=== PATIENT | female | born 1950 | race Caucasian/White ===

== ENCOUNTER 2017-05-05 09:49 | Inpatient (IN) ==
[~2017-05-05 09:49] MED LIST: Bacitracin 50,000 UNIT, Polymyxin B Sulfate 500,000 UNIT, Sodium Chloride IRRigation 1,... IR ONE
[2017-05-05] MEDS ORDERED: Ondansetron 4 MG/2 ML VIAL ONE (09:57)
[2017-05-05] MEDS ORDERED: *HR* Midazolam HCl 5 MG/5 ML VIAL IVP ONE (09:57)
[2017-05-05] MEDS ORDERED: Lidocaine -MPF 2% 2 ML VIAL ONE (09:57)
[2017-05-05] MEDS ORDERED: *HR* FentaNYL (PF) 100 MCG/2 ML VIAL ONE ×2 (09:57→14:48)
[2017-05-05] MEDS ORDERED: *HR* Propofol 200 MG/20 ML VIAL IVP ONE (09:57)
[2017-05-05] MEDS ORDERED: Lidocaine -MPF 4% 5 ML AMPUL ONE (09:57)
[2017-05-05] MEDS ORDERED: *HR* Remifentanil 2 MG VIAL IVP ONE (09:57)
[2017-05-05] MEDS ORDERED: Dexamethasone 4 MG/ML VIAL ONE (09:57)
[2017-05-05] MEDS ORDERED: CeFAZolin Syr 2,000MG/20 ML 2,000 MG/20 ML SYRINGE IVPB ONE (10:02)
[2017-05-05] MEDS ORDERED: Plasma-Lyte A (PH 7.4) 1,000 ML IVC SCH (10:15)
[2017-05-05] MEDS ORDERED: Acetaminophen IV 1,000 MG/100 ML INFUS..BTL IVPB ONE (10:23)
[2017-05-05] MEDS ORDERED: Famotidine 20 MG/2 ML VIAL IVP ONE (10:23)
[2017-05-05] MEDS ORDERED: Gabapentin 300 MG CAPSULE PO ONE (10:23)
--- NOTE | 2017-05-05 10:37 | Anesthesia Evaluation PreOp ---
Date of Encounter: 05/05/17 Time of Encounter: 10:35 - Past History Planned Operation: PLIF L5-S1 Cardiac History: HTN, Hyperlipidemia Pulmonary History: Denies Any Significant HX EMPLOYEE BENEFITS COORDINATOR History: Denies Any Significant HX Other Medical History: GERD, Other (Arthritis) Anesthesia History: Past Anesthesia (Bladder Surgery), Problems (Collapsed Lung) : No Alcohol Use: none Drug use: none Medications and Allergies BuPROPion XL (24 HR) [Wellbutrin XL] 150 mg PO DAILY 05/05/17 [History] Celecoxib [Celebrex] 200 mg PO DAILY 05/05/17 [History] Diltiazem CD (24hr) [Cardizem CD] 240 mg PO DAILY 05/05/17 [History] Multivit-Min/Iron/Folic/Lutein [Centrum Silver Women Tablet] 1 tab PO DAILY 02/10 [History] Omeprazole [PriLOSEC] 20 mg PO DAILY 05/05/17 [History] Paroxetine HCl [Paxil] 20 mg PO DAILY 05/05/17 [History] Simvastatin [Zocor] 20 mg PO HS 05/05/17 [History] Triamterene/Hydrochlorothiazid [Dyazide 37.5-25 Capsule] 1 tab PO DAILY [History] 3 Allergy/AdvReac Type Severity Reaction Status Date / Time benazepril [From Lotensin] Allergy Cough Verified 05/05/17 10:30 hydrochlorothiazide Allergy Cough Verified 05/05/17 10:30 [From Diovan HCT] valsartan [From Diovan HCT] Allergy Cough Verified 05/05/17 10:30 - Meds/Allergy Pre-op Review Medications Reviewed: Yes Allergies Reviewed: Yes Beta Blockers on Current Med List: No Anesthesia Results - Labs Laboratory Tests 04/25/17 04/25/17 13:57 13:57 Hgb 12.6 Hct 41.1 Plt Count 491 H Sodium 140 Potassium 3.8 BUN 22 Creatinine 0.99 - Imaging EKG: report reviewed (SR) Anesthesia Exam O2 Sat Height 1.42 m Height 1.42 m Weight 52.163 kg Weight 52.163 kg O2 Sat by Pulse Oximetry 95 Vital Signs Temp Pulse Resp BP Pulse Ox 98.9 F 90 18 136/77 95 05/05/17 10:37 05/05/17 10:37 05/05/17 10:37 05/05/17 10:37 05/05/17 10:37 Height: 4'8 Weight: 115 lbs NPO (# of Hours): MN Pain Scale: 0 - HEENT Pupil (Motor): Pupils equal, EOMI Mallampati: III Teeth: Normal Oral Opening: Less than or equal to 3 - EMPLOYEE BENEFITS COORDINATOR LOC: Oriented EMPLOYEE BENEFITS COORDINATOR Motor: Normal RUE, Normal LUE, Normal RLE, Normal LLE, Normal Face EMPLOYEE BENEFITS COORDINATOR Sensory: Normal: RUE, LUE, RLE, LLE, Face - Cardiac Rhythm: Regular Murmur: None JVD: No Carotid Bruit: No - Pulmonary Breath Sounds: bilateral Clear Respiratory Effort: Symmetrical Anesthesia Assess/Plan ASA Score: 2 Modified [place] Scale for Level of Consciousness: Cooperative, oriented, and tranquil Anesthetic Plan: General Monitoring Plan: Standard Monitors Recovery Plan: PACU (Discussed GA, agrees to proceed)
--- NOTE | 2017-05-05 11:04 | History & Physical Report ---
Date of Encounter: 05/05/17 Time of Encounter: 11:03 24 Hour HP Update - Instructions Instructions: If the History and Physical is less than 30 days old and was completed prior to A.M. admission and or procedure and has NOT been updated on calendar day of procedure please complete this update prior to performing procedure. - Update Patient reports changes in Medical Condition: No Changes in examination, assessment, or condition: No Changes in Medication: No Preop tests/diagnostics Reviewed: Yes Pre-Op MRSA Screen: Negative Surgery Remains Indicated: Yes Consent for Planned Operative Procedure(s) Verified: Yes - Pre-Operative Checklist Preoperative Checklist Indicated: No Prophylactic Antibiotic Ordered: Yes Home Medications Include Beta Jeanie: No Beta Jeanie Taken Today (Day of Surgery): No Beta Jeanie Taken Yesterday (Day Prior to Surgery): No Is VTE Prophylaxis Indicated?: Yes
[2017-05-05] MEDS ORDERED: *HR* PHENYLEPHRINE 1,000 MCG/10 ML SYRINGE IVP ONE ×2 (12:47→14:27)
[2017-05-05] MEDS ORDERED: EPHEDrine 50 MG/ML VIAL ONE (13:27)
[2017-05-05] MEDS ORDERED: *HR* OxyCODONE Immed Rel 5 MG TABLET PO PRN (13:42)
[2017-05-05] MEDS ORDERED: *HR* FentaNYL (PF) 100 MCG/2 ML VIAL IVP PRN (13:42)
[2017-05-05] MEDS ORDERED: Ondansetron 4 MG/2 ML VIAL IVP ONE (13:42)
[2017-05-05] MEDS ORDERED: *HR* Labetalol 20 MG/4 ML SYRINGE IVP PRN (13:42)
[2017-05-05] MEDS ORDERED: *HR* Promethazine 25 MG/ML VIAL IVP PRN (13:42)
[2017-05-05] MEDS ORDERED: MORPHINE SUL Oral CONC 10 MG/0.5 ML ORAL.SYG SL PRN (13:42)
--- NOTE | 2017-05-05 14:54 | Orthopedic Operative Note ---
Date of procedure: 05/05/17 Pre-op diagnosis: Perineural cyst, lumbar stenosis, lumbar radiculopathy Post-op diagnosis: same Operation/Findings: Posterior lumbar interbody fusion L5-S1: The patient successfully underwent general endotracheal anesthesia. The patient was given antibiotics prior to the start of the procedure. Compression boots and stockings were used for deep vein thrombosis prophylaxis. A Hooper catheter was placed. Leads for neuro monitoring were placed on the upper and lower extremities. This included the cranium. The neuro monitoring personnel confirmed there were satisfactory readings prior to the start of the procedure. The patient was turned prone on the Pedro table. The back was prepped and draped in the usual sterile fashion. An incision was was marked and centered over the involved L5-S1 levels in the mid line. The incision was deepened through the lumbar fascia. Bovie cautery and Schafer elevators were used to reflect the paraspinal musculature at the lateral extent of the transverse processes of the involved L5 and S1 levels. Basilia clamps were placed over the L5 spinous process. An intraoperative lateral fluoroscopy graft was obtained. A conversation was held between the surgeon and radiologist and both confirmed we had the correct L5-S1 operative level. We then placed pedicle screws in standard fashion with the aid of fluoroscopy and anatomic landmarks. Briefly a starter awl was used. A gearshift was subsequently used to enter the instructor pilot hole via a transpedicular route into the vertebral body. The instructor pilot hole was tapped with an undersized instrument, and subsequently four 6.5 x 40 mm pedicle screws were placed bilaterally at the indicated L5 and S1 levels. The screws were tested with the aid of the neurologic monitoring staff via pedicle screw stimulation. All reading suggested there was no significant cortical wall breech. The screws were also evaluated fluoro- graphically and appeared to be in satisfactory position. We then turned our attention to the decompression portion of the procedure. We removed the supraspinous and interspinous ligaments and subsequently the insertion of the ligamentum flavum on the undersurface of the proximal L5 lamina was dislodged with a curette. We then removed the ligamentum flavum as well as undercut the L5-S1 facets at this level to decompress the lateral recesses. We also performed a L5 laminectomy. This was an indirect decompression as there was significant ballooning of the thecal sac consistent with a perineural cyst and this involved the exiting roots as well. After the decompression which was over and above that which was required to place the interbody graft, the foramen and traversing roots at this L5-S1 level were found to be free and patent. We also took part of the medial facet in order to aid in the decompression. We then protected the neural elements including the thecal sac and traversing nerve root on the right with a dural retractor. We made an annulotomy into the L5-S1 disc space and then removed entire disc material using Pituitary instruments. We trialed various size grafts after the endplates were prepared for graft insertion. An 8 x 26 enter body graft fit well within the disc space. We obtained some bone from the right posterior superior iliac spine through us a separate incision and combined with this with the bone which we had saved from the laminectomy portion of the procedure. This autograft bone was first placed in the anterior portion of the L5-S1 disc space and additional bone was placed within the interbody graft spacer. We then placed the interbody graft spacer obliquely across the L5-S1 disc space towards the midline while protecting the neural elements with a root retractor. When the graft was found to be in satisfactory position the company controller was removed. We then copiously irrigated the wound. We then decorticated the L5 transverse processes as well as the facet joints of the involved L5-S1 levels and proximal portion of the sacrum to aid in the posterolateral fusion. We placed autograft bone in the lateral gutters over these regions. We then placed rods within the screw heads of the involved L5- S1 levels and first locked the distal screws and then subsequently locked the proximal screws. We then closed the wound in layers with 1 Vicryl for the fascia, 2-0 Vicryl. Subcutaneous tissue, and Dermabond was used for skin closure. Sterile dressings were placed over the wound. The patient was turned supine on a hospital bed and extubated. All sponge instruments and needle counts were correct at the end of the procedure. The patient tolerated the procedure well without complications. Anesthesia: GETA Surgeon: Tee Crowe Jr Was there an senior office assistant present: No Estimated blood loss (cc): 125 Specimen: None Condition: stable Disposition: PACU
[2017-05-05] MEDS ORDERED: Acetaminophen 325 MG TABLET PO PRN (15:48)
[2017-05-05] MEDS ORDERED: Ondansetron 4 MG/2 ML VIAL IVP PRN (15:48)
[2017-05-05] MEDS ORDERED: Naloxone 0.4 MG/ML INJ IVP PRN (15:48)
[2017-05-05] MEDS ORDERED: *HR* Acetaminophen w/Cod 300-30 mg 1 TAB TABLET PO PRN (15:48)
--- NOTE | 2017-05-05 15:52 | Anesthesia Evaluation Post Op ---
Date of Encounter: 05/05/17 Time of Encounter: 13:30 - Vital Signs Vital Signs: Vital Signs/O2 Sat, Most Current Temp Pulse Resp BP Pulse Ox 99.4 F 98 16 118/71 97 05/05/17 15:38 05/05/17 15:38 05/05/17 15:38 05/05/17 15:38 05/05/17 15:38 - Lungs Lungs: Clear Ascult./Percussion - Airway Airway: Non-obstructed - Cardiovascular Regular Rate - Mental Status Mental Status: Asleep with brisk response to light stimulation - Pain Pain Scale: 0 Pain Scale used: Numeric (1 - 10) - Nausea Vomiting Nausea Vomiting: Not Present - Hydration Hydration: NPO, Hooper catheter - Discharge PostOp Status: Transfer Patient to floor
[2017-05-05] MEDS ORDERED: *HR* OxyCODONE Immed Rel 5 MG TABLET PO SCH (16:00)
[2017-05-05] MEDS ORDERED: *HR* HYDROcodone/Acet 5/325 mg TABLET PO SCH (16:00)
[2017-05-05] MEDS ORDERED: Ringers Solution, Lactated 1,000 ML ONE (16:10)
[2017-05-05] MEDS: Ringers Solution, Lactated 1,000 ML IVC SCH (17:32)
[2017-05-05] MEDS: CeFAZolin Premix DUPLEX 2,000 MG/50 ML BAG IVPB SCH (17:32)
[2017-05-05] MEDS: *HR* HYDROcodone/Acet 5/325 mg TABLET PO PRN (18:20)
[2017-05-05] MEDS: Celecoxib 200 MG CAPSULE PO SCH (21:09)
[2017-05-05] MEDS: *HR* OxyCODONE Immed Rel 5 MG TABLET PO PRN (21:40)
[2017-05-06] MEDS: CeFAZolin Premix DUPLEX 2,000 MG/50 ML BAG IVPB SCH (01:29)
[2017-05-06] MEDS: *HR* OxyCODONE Immed Rel 5 MG TABLET PO PRN ×5 (04:13→21:42)
[2017-05-06] MEDS: Ringers Solution, Lactated 1,000 ML IVC SCH ×2 (04:48→15:14)
[2017-05-06] MEDS ORDERED: Bacitracin 50,000 UNIT, Polymyxin B Sulfate 500,000 UNIT, Sodium Chloride IRRigation 1,... IR ONE (06:00)
[2017-05-06] MEDS: *HR* HYDROcodone/Acet 5/325 mg TABLET PO PRN ×3 (07:58→19:01)
[2017-05-06] MEDS: Celecoxib 200 MG CAPSULE PO SCH ×2 (07:59→19:55)
[2017-05-06] MEDS: Diltiazem CD (24hr) 240 MG CAPSULE PO SCH (07:59)
[2017-05-06] MEDS: Multivit/Ca/Min/Fe/FA 1 TAB TABLET PO SCH (07:59)
[2017-05-06] MEDS: BuPROPion XL (24 HR) 150 MG TABLET PO SCH (07:59)
[2017-05-07] MEDS: Ringers Solution, Lactated 1,000 ML IVC SCH (01:22)
[2017-05-07] MEDS: *HR* OxyCODONE Immed Rel 5 MG TABLET PO PRN ×3 (04:14→18:59)
--- NOTE | 2017-05-07 08:07 | Spine Progress Note ---
Date of Encounter: 05/07/17 Time of Encounter: 12:05 Subjective Principal diagnosis: Status post lumbar fusion, lumbar radiculopathy, Interval history: The patient is complains of some left toe numbness with mild radicular symptoms in the left lower extremity. Afebrile vital signs are stable. Dressing is clean dry and intact. Neurovascularly intact with regard to bilateral lower extremities. Fires all upper and lower extremity motor groups. . Assessment : stable. Plan mobilize ,continue analgesics, discharge planning. Objective Vital signs: Vital Signs Temp Pulse Resp BP Pulse Ox 05/07/17 06:35 98.8 F 76 18 98/57 96 05/07/17 00:28 98.4 F 82 15 93/53 93 05/06/17 20:42 99.3 F 84 18 102/61 93 05/06/17 15:00 98.3 F 92 18 110/68 94 05/06/17 11:18 99.4 F 88 18 110/52 93 Intake and Output 05/06/17 05/07/17 05/07/17 23:59 07:59 15:59 Intake Total 1000 / 1000 Output Total 250 / 250 225 / 225 Balance -250 / -250 775 / 775 Intake: IV Fluids 1000 / 1000 Lactated Ringers 1,000 ML @ 100 1000 / 1000 mls/hr IVC .Q10H ZHANE Rx#: [id number] Output: Urine 250 / 250 225 / 225 Other: # Voids 1 2 Consult Discharge Plan - Plan Referrals: Kevin Laws MD [Primary Care Provider] -
[2017-05-07] MEDS: *HR* HYDROcodone/Acet 5/325 mg TABLET PO PRN ×3 (08:10→20:54)
[2017-05-07] MEDS: Celecoxib 200 MG CAPSULE PO SCH ×2 (08:57→20:54)
[2017-05-07] MEDS: Diltiazem CD (24hr) 240 MG CAPSULE PO SCH (08:57)
[2017-05-07] MEDS: BuPROPion XL (24 HR) 150 MG TABLET PO SCH (08:57)
[2017-05-07] MEDS: Multivit/Ca/Min/Fe/FA 1 TAB TABLET PO SCH (08:57)
[2017-05-08] MEDS: *HR* HYDROcodone/Acet 5/325 mg TABLET PO PRN (00:54)
[2017-05-08] MEDS: *HR* OxyCODONE Immed Rel 5 MG TABLET PO PRN ×4 (05:01→19:27)
[2017-05-08] MEDS: Diltiazem CD (24hr) 240 MG CAPSULE PO SCH (08:55)
[2017-05-08] MEDS: Celecoxib 200 MG CAPSULE PO SCH ×2 (08:55→20:09)
[2017-05-08] MEDS: Multivit/Ca/Min/Fe/FA 1 TAB TABLET PO SCH (08:55)
[2017-05-08] MEDS: BuPROPion XL (24 HR) 150 MG TABLET PO SCH (08:56)
[2017-05-08 09:38] LABS: BUN/Creatinine Ratio 17 (6-26); Blood Urea Nitrogen 10 mg/dL (8-23); Calcium 8.7 mg/dL (8.6-10.3); Carbon Dioxide 28 mEq/L (23-29); Chloride 98 mEq/L (98-107); Glucose 106 mg/dL (70-105); Osmolality,Calculated 273 (280-300); Potassium 3.6 mEq/L (3.5-5.1); Sodium 132 mEq/L (136-145); eGFR For African Americans > 60 (> 60); eGFR For Non-African Americans > 60 (> 60)
[2017-05-08] MEDS: tiZANidine 4 MG TABLET PO PRN (10:50)
--- NOTE | 2017-05-08 16:35 | Spine Progress Note ---
Date of Encounter: 05/07/17 Time of Encounter: 13:05 Subjective Principal diagnosis: Status post lumbar fusion, lumbar radiculopathy, Interval history: The patient is complains of some left toe numbness with mild radicular symptoms in the left lower extremity. Afebrile vital signs are stable. Dressing is clean dry and intact. Neurovascularly intact with regard to bilateral lower extremities. Fires all upper and lower extremity motor groups. . Assessment : stable. Plan mobilize ,continue analgesics, discharge planning. Objective Vital signs: Vital Signs Temp Pulse Resp BP Pulse Ox 05/08/17 14:08 97.5 F L 87 16 128/76 93 05/08/17 11:14 97.2 F L 93 18 125/73 90 05/08/17 06:25 98.5 F 78 16 126/78 95 05/08/17 04:23 98.4 F 83 15 127/70 93 05/07/17 19:56 98.1 F 78 18 127/71 94 Intake and Output 05/08/17 05/08/17 05/08/17 07:59 15:59 23:59 Intake Total 60 / 60 390 / 390 Output Total 300 / 300 500 / 500 Balance -240 / -240 -110 / -110 Intake: Oral 60 / 60 390 / 390 Output: Urine 300 / 300 500 / 500 Other: Meal Lunch Percent of Meal Consumed 60% # Voids 1 1 - Labs CBC & BMP: 05/08/17 06:33 Labs: Abnormal lab results Sodium 132 mEq/L (136-145) L 05/08/17 06:33 Creatinine 0.59 mg/dL (0.60-1.20) L 05/08/17 06:33 Glucose 106 mg/dL (70-105) H 05/08/17 06:33 Calculated Osmolality 273 (280-300) L 05/08/17 06:33 Consult Discharge Plan - Plan Referrals: Kevin Laws MD [Primary Care Provider] -
--- NOTE | 2017-05-08 16:37 | Spine Progress Note ---
Date of Encounter: 05/08/17 Time of Encounter: 16:35 Subjective Principal diagnosis: Status post lumbar fusion, lumbar radiculopathy, Interval history: The patient is complains of some radicular symptoms in the left lower extremity. She is mpbilizing poorly. Afebrile vital signs are stable. Incision is clean dry and intact. Neurovascularly intact with regard to bilateral lower extremities. Fires all upper and lower extremity motor groups. . Assessment :stable. Plan mobilize ,continue analgesics, discharge planning. Will likely need rehab. Objective Vital signs: Vital Signs Temp Pulse Resp BP Pulse Ox 05/08/17 14:08 97.5 F L 87 16 128/76 93 05/08/17 11:14 97.2 F L 93 18 125/73 90 05/08/17 06:25 98.5 F 78 16 126/78 95 05/08/17 04:23 98.4 F 83 15 127/70 93 05/07/17 19:56 98.1 F 78 18 127/71 94 Intake and Output 05/08/17 05/08/17 05/08/17 07:59 15:59 23:59 Intake Total 60 / 60 390 / 390 Output Total 300 / 300 500 / 500 Balance -240 / -240 -110 / -110 Intake: Oral 60 / 60 390 / 390 Output: Urine 300 / 300 500 / 500 Other: Meal Lunch Percent of Meal Consumed 60% # Voids 1 1 - Labs CBC & BMP: 05/08/17 06:33 Labs: Abnormal lab results Sodium 132 mEq/L (136-145) L 05/08/17 06:33 Creatinine 0.59 mg/dL (0.60-1.20) L 05/08/17 06:33 Glucose 106 mg/dL (70-105) H 05/08/17 06:33 Calculated Osmolality 273 (280-300) L 05/08/17 06:33 Consult Discharge Plan - Plan Referrals: Kevin Laws MD [Primary Care Provider] -
[2017-05-09] MEDS: *HR* OxyCODONE Immed Rel 5 MG TABLET PO PRN ×2 (03:29→14:58)
[2017-05-09] MEDS: tiZANidine 4 MG TABLET PO PRN (06:51)
[2017-05-09] MEDS: Multivit/Ca/Min/Fe/FA 1 TAB TABLET PO SCH (09:05)
[2017-05-09] MEDS: Celecoxib 200 MG CAPSULE PO SCH ×2 (09:05→20:49)
[2017-05-09] MEDS: BuPROPion XL (24 HR) 150 MG TABLET PO SCH (09:06)
[2017-05-09] MEDS: Diltiazem CD (24hr) 240 MG CAPSULE PO SCH (09:06)
[2017-05-09] MEDS: *HR* HYDROcodone/Acet 5/325 mg TABLET PO PRN ×2 (10:33→19:03)
[2017-05-09] MEDS: Gabapentin 300 MG CAPSULE PO SCH ×2 (14:58→20:49)
[2017-05-10] MEDS: *HR* HYDROcodone/Acet 5/325 mg TABLET PO PRN ×2 (04:05→18:30)
[2017-05-10] MEDS: Gabapentin 300 MG CAPSULE PO SCH ×3 (08:59→20:49)
[2017-05-10] MEDS: Celecoxib 200 MG CAPSULE PO SCH ×2 (08:59→20:49)
[2017-05-10] MEDS: *HR* OxyCODONE Immed Rel 5 MG TABLET PO PRN ×2 (08:59→13:47)
[2017-05-10] MEDS: Diltiazem CD (24hr) 240 MG CAPSULE PO SCH (08:59)
[2017-05-10] MEDS: Multivit/Ca/Min/Fe/FA 1 TAB TABLET PO SCH (09:00)
[2017-05-10] MEDS: BuPROPion XL (24 HR) 150 MG TABLET PO SCH (09:00)
[2017-05-10] MEDS ORDERED: Sennosides 8.6 MG TABLET PO PRN (14:09)
--- NOTE | 2017-05-10 16:09 | Orthopedics Progress Note ---
Date of Encounter: 05/10/17 Time of Encounter: 16:06 Subjective Principal diagnosis: Status post lumbar fusion, lumbar radiculopathy, Interval history: The patient complaining of left lower extremity pain and tingling. She states it is getting better sutures starting Neurontin The patient had modeling of the left lower extremity yesterday and also leg being cool to touch Back: Dressings are clean dry and intact Her left lower extremity is warm to touch, no hypersensitivity of the skin, no swelling ABIs were performed last night which showed normal study Assessment postoperative day #5 status post PLIF with increased leg pain Plan continue Neurontin Continue PT Possible repeat MRI of lumbar spine, Dr. Crowe will be in to discuss with the patient's family tomorrow Objective Vital signs: Vital Signs Temp Pulse Resp BP Pulse Ox 05/10/17 16:02 98.9 F 90 14 111/63 93 05/10/17 13:10 98.7 F 86 14 114/63 92 05/10/17 07:45 98.7 F 88 14 118/69 94 05/10/17 04:15 97.8 F 80 14 124/70 99 05/10/17 02:00 97 05/10/17 00:22 98.1 F 82 12 108/69 93 05/09/17 19:14 98.6 F 92 14 111/67 92 Intake and Output 05/10/17 05/10/17 05/10/17 07:59 15:59 23:59 Intake Total 200 / 200 440 / 440 Balance 200 / 200 440 / 440 Intake: Oral 200 / 200 240 / 240 Free Water 200 / 200 Other: Meal Lunch Percent of Meal Consumed 5% # Voids 1 1 Weight 54 kg Patient Weight 05/10/17 23:59 Weight 54 kg - Labs CBC & BMP: 05/08/17 06:33 Labs: Abnormal lab results Sodium 132 mEq/L (136-145) L 05/08/17 06:33 Creatinine 0.59 mg/dL (0.60-1.20) L 05/08/17 06:33 Glucose 106 mg/dL (70-105) H 05/08/17 06:33 Calculated Osmolality 273 (280-300) L 05/08/17 06:33 - VTE Documentation of Mechanical Device: Intermittent pneumatic compression device Consult Discharge Plan - Plan Referrals: Kevin Laws MD [Primary Care Provider] -
[2017-05-11] MEDS: *HR* OxyCODONE Immed Rel 5 MG TABLET PO PRN ×3 (02:18→20:48)
[2017-05-11] MEDS: *HR* HYDROcodone/Acet 5/325 mg TABLET PO PRN ×2 (07:32→17:43)
[2017-05-11] MEDS: BuPROPion XL (24 HR) 150 MG TABLET PO SCH (07:32)
[2017-05-11] MEDS: Gabapentin 300 MG CAPSULE PO SCH ×3 (07:32→20:48)
[2017-05-11] MEDS: Diltiazem CD (24hr) 240 MG CAPSULE PO SCH (07:32)
[2017-05-11] MEDS: Celecoxib 200 MG CAPSULE PO SCH (07:33)
[2017-05-11] MEDS: Multivit/Ca/Min/Fe/FA 1 TAB TABLET PO SCH (07:33)
--- NOTE | 2017-05-11 17:21 | Orthopedics Progress Note ---
Date of Encounter: 05/11/17 Time of Encounter: 17:20 Subjective Principal diagnosis: Status post lumbar fusion, lumbar radiculopathy, Interval history: The patient still complaining of left lower extremity pain and tingling. Back: Dressings are clean dry and intact Her left lower extremity is warm to touch, no hypersensitivity of the skin, no swelling She is able to move both feet, bilateral calves are soft and nontender ABIs were performed last night which showed normal study Assessment postoperative day #6 status post PLIF with increased leg pain Plan continue Neurontin Continue PT An MRI has been ordered for tomorrow morning Objective Vital signs: Vital Signs Temp Pulse Resp BP Pulse Ox 05/11/17 15:35 98.5 F 93 15 122/78 94 05/11/17 11:58 98.4 F 84 14 115/74 94 05/11/17 07:17 98.2 F 83 14 129/73 92 05/10/17 23:36 98.5 F 93 16 123/70 92 05/10/17 19:33 99 F 90 16 100/56 93 Intake and Output 05/11/17 05/11/17 05/11/17 07:59 15:59 23:59 Intake Total 120 / 120 Balance 120 / 120 Intake: Oral 120 / 120 Other: Meal Breakfast Percent of Meal Consumed 100% Stool Size Small Stool Consistency formed Stool Color Brown # Voids 1 # Bowel Movements 1 Weight 53.7 kg Patient Weight 05/11/17 23:59 Weight 53.7 kg - Labs CBC & BMP: 05/08/17 06:33 Labs: Abnormal lab results Sodium 132 mEq/L (136-145) L 05/08/17 06:33 Creatinine 0.59 mg/dL (0.60-1.20) L 05/08/17 06:33 Glucose 106 mg/dL (70-105) H 05/08/17 06:33 Calculated Osmolality 273 (280-300) L 05/08/17 06:33 - VTE Documentation of Mechanical Device: Intermittent pneumatic compression device Consult Discharge Plan - Plan Referrals: Kevin Laws MD [Primary Care Provider] -
[2017-05-12] MEDS: *HR* HYDROcodone/Acet 5/325 mg TABLET PO PRN ×2 (02:27→13:44)
[2017-05-12] MEDS: *HR* OxyCODONE Immed Rel 5 MG TABLET PO PRN ×4 (05:58→21:11)
[2017-05-12] MEDS: Celecoxib 200 MG CAPSULE PO SCH ×3 (05:58→21:10)
[2017-05-12] MEDS: Multivit/Ca/Min/Fe/FA 1 TAB TABLET PO SCH (08:08)
[2017-05-12] MEDS: Diltiazem CD (24hr) 240 MG CAPSULE PO SCH (08:08)
[2017-05-12] MEDS: Gabapentin 300 MG CAPSULE PO SCH ×3 (08:08→21:10)
[2017-05-12] MEDS: BuPROPion XL (24 HR) 150 MG TABLET PO SCH (08:08)
[2017-05-12] MEDS ORDERED: methylPREDNISolone 4 MG TABLET PO STA (09:50)
[2017-05-12] MEDS ORDERED: methylPREDNISolone 4 MG TABLET PO SCH ×3 (12:00→21:00)
[2017-05-12] MEDS: methylPREDNISolone 4 MG TABLET PO SCH ×2 (13:15→16:46)
[2017-05-12] MEDS: Ringers Solution, Lactated 1,000 ML IVC SCH ×7 (14:50→16:47)
[2017-05-13] MEDS: *HR* OxyCODONE Immed Rel 5 MG TABLET PO PRN (06:31)
[2017-05-13 06:41] VITALS: BP 127/68
[2017-05-13] MEDS: Celecoxib 200 MG CAPSULE PO SCH (07:57)
[2017-05-13] MEDS: Diltiazem CD (24hr) 240 MG CAPSULE PO SCH (07:57)
[2017-05-13] MEDS: Multivit/Ca/Min/Fe/FA 1 TAB TABLET PO SCH (07:57)
[2017-05-13] MEDS: BuPROPion XL (24 HR) 150 MG TABLET PO SCH (07:57)
[2017-05-13] MEDS: Gabapentin 300 MG CAPSULE PO SCH (07:57)
[2017-05-13] MEDS ORDERED: methylPREDNISolone 4 MG TABLET PO SCH (08:00)
--- NOTE | 2017-05-13 08:26 | Spine Progress Note ---
Date of Encounter: 05/12/17 Time of Encounter: 13:20 Subjective Principal diagnosis: Status post lumbar fusion, lumbar radiculopathy, Interval history: The patient is complains of some radicular symptoms in the left lower extremity. She is mpbilizing poorly. Afebrile vital signs are stable. Incision is clean dry and intact. Neurovascularly intact with regard to bilateral lower extremities. Fires all upper and lower extremity motor groups. . Assessment :stable. Plan mobilize ,continue analgesics, discharge planning. Likely going to signature May 13. Oral steroids started. Objective Vital signs: Vital Signs Temp Pulse Resp BP Pulse Ox 05/13/17 06:38 98.5 F 85 18 127/68 93 05/12/17 23:38 98.7 F 92 16 121/66 94 05/12/17 19:24 99.0 F 82 16 134/76 95 05/12/17 14:33 99.0 F 94 18 119/68 91 05/12/17 11:04 98.4 F 81 18 124/72 97 Intake and Output 05/12/17 05/13/17 05/13/17 23:59 07:59 15:59 Intake Total 0 / 0 Balance 0 / 0 Intake: Oral 0 / 0 Other: # Voids 2 1 - Labs CBC & BMP: 05/08/17 06:33 Labs: Abnormal lab results Sodium 132 mEq/L (136-145) L 05/08/17 06:33 Creatinine 0.59 mg/dL (0.60-1.20) L 05/08/17 06:33 Glucose 106 mg/dL (70-105) H 05/08/17 06:33 Calculated Osmolality 273 (280-300) L 05/08/17 06:33 Consult Discharge Plan - Plan Referrals: Kevin Laws MD [Primary Care Provider] -
--- NOTE | 2017-05-13 08:29 | Discharge Summary ---
- NOTES TO OUTPATIENT PROVIDER Notes to Outpatient Provider: Follow-up in 2 weeks and [facility] Orders not resulted at time of discharge: Pending orders 05/05/17 XR fluoroscopy <1 hr [XR] Routine Date of Encounter: 05/13/17 Time of Encounter: 08:27 - Discharge Diagnosis (1) Perineural cyst Priority: Secondary Status: Chronic (2) Lumbar stenosis Priority: Primary Status: Chronic Qualifiers: Neurogenic claudication status: without neurogenic claudication Qualified Code(s): M48.061 - Spinal stenosis, lumbar region without neurogenic claudication (3) Lumbar radiculopathy Priority: Secondary Status: Chronic (4) 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 Church is a 67 year old female The patient had an uneventful postoperative course. Progressed from intravenous analgesic needs to oral analgesic needs only. Remained neurovascularly intact and mobilized satisfactorily. All intraoperative and/or postoperative radiographic studies were satisfactory including repeat MRI and radiographs.. Patient is discharged with plan for rehabilitation and follow-up in 2 weeks post discharge on analgesic medication and patient's home medications. - Time Spent with Patient Total time spent providing and/or coordinating discharge services: - Discharge Medications Prescriptions: OxyCODONE Immed Rel [Roxicodone 5 MG] 5 mg PO Q4HR PRN 7 Days #30 tablet PRN Reason: Pain Home Medications: Acetaminophen w/Cod 300-30 mg [Tylenol w/Codeine #3] 1 each PO Q8H PRN 05/05/17 [History] BuPROPion XL (24 HR) [Wellbutrin Xl] 150 mg PO DAILY 05/05/17 [History] Celecoxib [Celebrex] 200 mg PO BID 05/05/17 [History] Diltiazem CD (24hr) [Cardizem CD] 240 mg PO DAILY 05/05/17 [History] Multivit-Min/Iron/Folic/Lutein [Centrum Silver Women Tablet] 1 tab PO DAILY 02/10 [History] Omeprazole [PriLOSEC] 20 mg PO DAILY 05/05/17 [History] Paroxetine HCl [Paxil] 20 mg PO DAILY 05/05/17 [History] Simvastatin [Zocor] 20 mg PO HS 05/05/17 [History] Triamterene/Hydrochlorothiazid [Dyazide 37.5-25 Capsule] 1 tab PO DAILY [History] OxyCODONE Immed Rel [Roxicodone 5 MG] 5 mg PO Q4HR PRN 7 Days #30 tablet [Rx] Allergies/Adverse Reactions: 3 Allergy/AdvReac Type Severity Reaction Status Date / Time benazepril [From Lotensin] Allergy Cough Verified 05/05/17 10:30 hydrochlorothiazide Allergy Cough Verified 05/05/17 10:30 [From Diovan HCT] valsartan [From Diovan HCT] Allergy Cough Verified 05/05/17 10:30 Date of admission: 05/05/17 15:43 Primary care physician: Kevin Laws MD Consults: 05/05/17 15:48 Consult to Occupational Therapy [CONS] Routine Comment: Evaluate, develop and implement POC Reason for Consult: Postoperative rehabilitation Does patient have active BEDREST order?: No Is patient medically & hemodynamically stable?: Yes Patient assessed for mobility or mobilized this visit?: Yes Consult to Physical Therapy [CONS] Routine Comment: Evaluate, develop and implement POC Reason for Consult: Postoperative rehabilitation Does patient have active BEDREST order?: No Is patient medically & hemodynamically stable?: Yes Patient assessed for mobility or mobilized this visit?: No Consult to Spine Navigator [CONS] [CONS] Routine 05/08/17 13:24 Consult to Automation Machine Operator [CONS] Routine Reason for SW Consult: discharge planning 05/08/17 13:33 Consult to Physical Therapy [CONS] Routine Comment: Evaluate, develop and implement POC Reason for Consult: s/p PLIF Does patient have active BEDREST order?: No Is patient medically & hemodynamically stable?: Yes Patient assessed for mobility or mobilized this visit?: Yes 05/08/17 13:34 Consult to Occupational Therapy [CONS] Routine Comment: Evaluate, develop and implement POC Reason for Consult: s/p PLIF Does patient have active BEDREST order?: No Is patient medically & hemodynamically stable?: Yes Patient assessed for mobility or mobilized this visit?: Yes - VTE Documentation of Mechanical Device: Intermittent pneumatic compression device - Impressions ITS Impressions Lumbar Spine X-Ray 05/05/17 00:00 IMPRESSION: Status post L5-S1 discectomy and posterior fixation. No radiographic evidence of hardware complication. D/ : / 05/05/2017 17:17:32 Caryn Landa MD / [email or web address] Interpreting Provider: Caryn Landa MD Lumbar Spine X-Ray 05/07/17 10:58 IMPRESSION: 1. Status post L5 laminectomy, L5-S1 discectomy with spacer and bilateral L5-S1 transpedicular spinal fixation. No change from recent previous study. 2. No hardware failure or fracture is seen. 3. Degenerative grade 1 anterolisthesis C3 on C4 and C4 on C5. 4. Moderately severe degenerative disc disease T12-L1, L2-3 and L3-4. 5. No lumbar fracture. 6. Mild, bilaterally symmetrical SI joint osteoarthritis. D/ / Anjum Gonzales / Anjum Gonzales Interpreting Provider: Anjum Gonzales Lumbar Spine MRI 05/11/17 08:00 IMPRESSION: 1. Interval bilateral laminectomies and posterior lumbosacral fusion at L5-S1. 2. Significant susceptibility artifact at L5-S1 limiting evaluation. The previously identified large synovial cyst is again noted though incompletely imaged. The degree of spinal canal stenosis appears improved within the limitations of the exam. 3. Otherwise stable multilevel degenerative changes of the lumbar spine as described above. D/ / 05/12/2017 10:12:25 Alfred Burroughs MD / [email or web address] Interpreting Provider: Alfred Burroughs MD - Patient Status Disposition: Transfer SNF Condition: Fair Functional capacity at discharge: uses cane/walker Overall status at discharge: patient is progressing back to baseline - Discharge Instructions Follow Up With: Kevin Laws MD [Primary Care Provider] - - Diet and Activity Activity: as per physical therapy Diet: advance to your usual diet
--- NOTE | 2017-05-13 08:45 | Spine Progress Note ---
Date of Encounter: 05/13/17 Time of Encounter: 08:44 - Assessment and Plan (1) Perineural cyst Current Visit: Yes Status: Chronic (2) Lumbar stenosis Current Visit: Yes Status: Chronic Qualifiers: Neurogenic claudication status: without neurogenic claudication Qualified Code(s): M48.061 - Spinal stenosis, lumbar region without neurogenic claudication (3) Lumbar radiculopathy Current Visit: Yes Status: Chronic (4) Synovial cyst of lumbar facet joint Current Visit: Yes Status: Chronic Subjective Principal diagnosis: Status post lumbar fusion, lumbar radiculopathy, Interval history: The patient is complains of some radicular symptoms in the left lower extremity. She is mpbilizing poorly. Afebrile vital signs are stable. Incision is clean dry and intact. Neurovascularly intact with regard to bilateral lower extremities. Fires all upper and lower extremity motor groups. . Assessment :stable. Plan mobilize ,continue analgesics, discharge planning. Likely going to signature May 13. Oral steroids started. On discharge we are going to continue her second day of the Medrol Dosepak as well as continue her increased Neurontin dose of 600 mg by mouth 3 times a day. Objective Vital signs: Vital Signs Temp Pulse Resp BP Pulse Ox 05/13/17 06:38 98.5 F 85 18 127/68 93 05/12/17 23:38 98.7 F 92 16 121/66 94 05/12/17 19:24 99.0 F 82 16 134/76 95 05/12/17 14:33 99.0 F 94 18 119/68 91 05/12/17 11:04 98.4 F 81 18 124/72 97 Intake and Output 05/12/17 05/13/17 05/13/17 23:59 07:59 15:59 Intake Total 0 / 0 Balance 0 / 0 Intake: Oral 0 / 0 Other: # Voids 2 1 - Labs CBC & BMP: 05/08/17 06:33 Labs: Abnormal lab results Sodium 132 mEq/L (136-145) L 05/08/17 06:33 Creatinine 0.59 mg/dL (0.60-1.20) L 05/08/17 06:33 Glucose 106 mg/dL (70-105) H 05/08/17 06:33 Calculated Osmolality 273 (280-300) L 05/08/17 06:33 Consult Discharge Plan - Plan Referrals: Kevin Laws MD [Primary Care Provider] - Prescriptions: OxyCODONE Immed Rel [Roxicodone 5 MG] 5 mg PO Q4HR PRN 7 Days #30 tablet PRN Reason: Pain
[2017-05-13] MEDS: *HR* HYDROcodone/Acet 5/325 mg TABLET PO PRN (09:47)
[2017-05-14] MEDS ORDERED: methylPREDNISolone 4 MG TABLET PO SCH (08:00)
[2017-05-15] MEDS ORDERED: methylPREDNISolone 4 MG TABLET PO SCH (08:00)
[2017-05-16] MEDS ORDERED: methylPREDNISolone 4 MG TABLET PO SCH (08:00)
[2017-05-17] MEDS ORDERED: methylPREDNISolone 4 MG TABLET PO SCH (08:00)
== END 2017-05-13 11:20 | DRG 460 ==
LOC: SAMDAY 09:49 → 3NENU 15:43
PROVIDERS: ADMIT Orthopaedic Surgery Orthopaedic Surgery of the Spine; ATTEND Orthopaedic Surgery Orthopaedic Surgery of the Spine